=== PATIENT | female | born 1945 | race African-American/Black ===

== ENCOUNTER 2021-07-06 20:08 | Inpatient (IN) | payer OTHER ==
[2021-07-06] MEDS ORDERED: Benzonatate 100 MG CAP PO PRN (20:38)
[2021-07-06] MEDS ORDERED: Dextrose 50% Abboject 50 ML SYRINGE SLOW IVP PRN (20:57)
[2021-07-06] MEDS ORDERED: Acetaminophen 325 MG TAB PO PRN (20:57)
[2021-07-06 21:46] VITALS: BMI 23.6
[2021-07-06] MEDS: HumaLOG 300 UNITS/3 ML VIAL SC PRN (22:33)
[2021-07-06] MEDS: Lantus 1000 UNITS/10 ML VIAL SC SCH (22:34)
[2021-07-06] MEDS: Rifaximin 550 MG TAB PO SCH (22:35)
[2021-07-06] MEDS: Simvastatin 10 MG TAB PO SCH (22:35)
[2021-07-06] MEDS: Carvedilol 3.125 MG TAB PO SCH (22:35)
[2021-07-07] MEDS ORDERED: Ampicillin 2 GM VIAL IVPB SCH (05:00)
[2021-07-07] MEDS: HumaLOG 300 UNITS/3 ML VIAL SC PRN (06:01)
[2021-07-07] MEDS: Levothyroxine Sodium 75 MCG TAB PO SCH (06:03)
[2021-07-07] MEDS: Ampicillin 2 GM in Sodium Chloride 0.9% 100 ML IVPB SCH ×2 (06:03→17:01)
[2021-07-07 07:24] LABS: AST (SGOT) 26 U/L (5-34); Alkaline Phosphatase 144 U/L (40-110); Anion Gap 20 mmol/L (10-20); BUN (Urea Nitrogen) 25 mg/dL (9.8-20.1); Bilirubin, Total 3.3 mg/dL (0.2-1.2); Calc. Creatinine Clearance 7 mL/min (70-130); Calcium 8.4 mg/dL (7.8-10.44); Carbon Dioxide 21 mmol/L (23-31); Chloride 106 mmol/L (98-107); Globulin 3.6 g/dL (2.4-3.5); Potassium 3.5 mmol/L (3.5-5.1); Protein, Total 5.6 g/dL (5.8-8.1); Sodium 143 mmol/L (136-145)
[2021-07-07 07:39] LABS: #Eosinphils 0.1 thou/uL (0.0-0.7); #Lymphocytes 0.3 thou/uL (1.20-3.40); #Monocytes 0.5 thou/uL (0.11-0.59); %Eosinophils 1.9 % (0.0-10.0); %Lymphocytes 8.9 % (21.0-51.0); %Monocytes 11.5 % (0.0-10.0); %Neutrophils 76.7 % (42.0-75.0); Hemoglobin 8.2 g/dL (12.0-16.0); Mean Corpuscular HGB CONC 31.7 g/dL (32.0-36.0); Mean Corpuscular Hemoglobin 29.2 pg (27.0-31.0); Mean Corpuscular Volume 91.8 fL (78.0-98.0); Mean Platelet Volume 10.1 fL (7.4-10.4); Platelet Count 52 thou/uL (130-400); RBC Distribution Width 18.6 % (11.5-14.5); Red Blood Cell (RBC) Count 2.82 mill/uL (4.20-5.40); White Blood Cell (WBC) Count 3.9 thou/uL (4.8-10.8)
[2021-07-07 07:41] LABS: ALT (SGPT) 26 U/L (8-55); Glucose 180 mg/dL (83-110)
[2021-07-07] MEDS: Spironolactone 25 MG TAB PO SCH (08:55)
[2021-07-07] MEDS: Amlodipine 5 MG TAB PO SCH (08:56)
[2021-07-07] MEDS: Rifaximin 550 MG TAB PO SCH ×2 (08:56→21:22)
[2021-07-07] MEDS: Carvedilol 3.125 MG TAB PO SCH ×2 (08:56→21:22)
[2021-07-07] MEDS: Midodrine HCl 5 MG TAB PO SCH (08:56)
[2021-07-07] MEDS: Furosemide 40 MG TAB PO SCH (08:56)
[2021-07-07] MEDS: Lantus 1000 UNITS/10 ML VIAL SC SCH ×2 (09:03→21:23)
[2021-07-07] MEDS: Simvastatin 10 MG TAB PO SCH (21:22)
[2021-07-08] MEDS: Ampicillin 2 GM in Sodium Chloride 0.9% 100 ML IVPB SCH ×2 (05:08→17:22)
[2021-07-08] MEDS: Levothyroxine Sodium 75 MCG TAB PO SCH (05:08)
[2021-07-08] MEDS: Spironolactone 25 MG TAB PO SCH (09:17)
[2021-07-08] MEDS: Midodrine HCl 5 MG TAB PO SCH (09:17)
[2021-07-08] MEDS: Rifaximin 550 MG TAB PO SCH ×2 (09:18→21:53)
[2021-07-08] MEDS: Carvedilol 3.125 MG TAB PO SCH ×2 (09:18→21:53)
[2021-07-08] MEDS: Lantus 1000 UNITS/10 ML VIAL SC SCH ×2 (09:19→21:53)
[2021-07-08] MEDS: Furosemide 40 MG TAB PO SCH (09:19)
[2021-07-08] MEDS: Amlodipine 5 MG TAB PO SCH (09:20)
[2021-07-08] MEDS: HumaLOG 300 UNITS/3 ML VIAL SC PRN ×2 (12:22→17:21)
[2021-07-08] MEDS: Simvastatin 10 MG TAB PO SCH (21:53)
[2021-07-09] MEDS ORDERED: Sodium Chloride 0.9% 10 ML ONE (04:23)
[2021-07-09] MEDS: Ampicillin 2 GM in Sodium Chloride 0.9% 100 ML IVPB SCH ×2 (04:25→17:07)
[2021-07-09] MEDS: Levothyroxine Sodium 75 MCG TAB PO SCH (04:25)
[2021-07-09] MEDS: Furosemide 40 MG TAB PO SCH (11:51)
[2021-07-09] MEDS: Spironolactone 25 MG TAB PO SCH (11:51)
[2021-07-09] MEDS: Amlodipine 5 MG TAB PO SCH (11:52)
[2021-07-09] MEDS: Carvedilol 3.125 MG TAB PO SCH ×2 (11:53→21:04)
[2021-07-09] MEDS: Lantus 1000 UNITS/10 ML VIAL SC SCH ×2 (11:53→21:04)
[2021-07-09] MEDS: Rifaximin 550 MG TAB PO SCH ×2 (11:53→21:04)
[2021-07-09] MEDS: HumaLOG 300 UNITS/3 ML VIAL SC PRN ×2 (17:22→21:04)
[2021-07-09] MEDS: Simvastatin 10 MG TAB PO SCH (21:04)
[2021-07-10] MEDS ORDERED: Sodium Chloride 0.9% 10 ML ONE (05:26)
[2021-07-10] MEDS: Ampicillin 2 GM in Sodium Chloride 0.9% 100 ML IVPB SCH ×2 (05:47→17:15)
[2021-07-10] MEDS: Levothyroxine Sodium 75 MCG TAB PO SCH (05:47)
[2021-07-10] MEDS: Spironolactone 25 MG TAB PO SCH (09:45)
[2021-07-10] MEDS: Carvedilol 3.125 MG TAB PO SCH ×2 (09:46→20:42)
[2021-07-10] MEDS: Amlodipine 5 MG TAB PO SCH (09:46)
[2021-07-10] MEDS: Lantus 1000 UNITS/10 ML VIAL SC SCH ×2 (09:47→20:42)
[2021-07-10] MEDS: Furosemide 40 MG TAB PO SCH (09:47)
[2021-07-10] MEDS: Rifaximin 550 MG TAB PO SCH ×2 (09:47→20:41)
[2021-07-10] MEDS: HumaLOG 300 UNITS/3 ML VIAL SC PRN ×2 (12:15→17:16)
[2021-07-10 16:33] LABS: SARS-CoV-2 PCR by NAA Not Detected (NotDetected)
[2021-07-10] MEDS: Simvastatin 10 MG TAB PO SCH (20:42)
[2021-07-11] MEDS: Levothyroxine Sodium 75 MCG TAB PO SCH (06:04)
[2021-07-11] MEDS: Ampicillin 2 GM in Sodium Chloride 0.9% 100 ML IVPB SCH ×2 (06:04→17:59)
[2021-07-11 06:23] LABS: Anion Gap 17 mmol/L (10-20); BUN (Urea Nitrogen) 18 mg/dL (9.8-20.1); Calc. Creatinine Clearance 9 mL/min (70-130); Calcium 8.5 mg/dL (7.8-10.44); Carbon Dioxide 21 mmol/L (23-31); Chloride 109 mmol/L (98-107); Glucose 89 mg/dL (83-110); Potassium 3.9 mmol/L (3.5-5.1); Sodium 143 mmol/L (136-145)
[2021-07-11 06:41] LABS: #Basophils 0.1 thou/uL (0.0-0.2); #Eosinphils 0.1 thou/uL (0.0-0.7); #Lymphocytes 0.4 thou/uL (1.20-3.40); #Monocytes 0.4 thou/uL (0.11-0.59); #Neutrophils 3.5 thou/uL (1.40-6.50); %Basophils 1.2 % (0.0-1.0); %Lymphocytes 9.1 % (21.0-51.0); %Monocytes 9.5 % (0.0-10.0); %Neutrophils 78.2 % (42.0-75.0); Hemoglobin 8.1 g/dL (12.0-16.0); Mean Corpuscular HGB CONC 30.5 g/dL (32.0-36.0); Mean Corpuscular Hemoglobin 28.5 pg (27.0-31.0); Mean Corpuscular Volume 93.3 fL (78.0-98.0); Mean Platelet Volume 10.3 fL (7.4-10.4); Platelet Count 65 thou/uL (130-400); RBC Distribution Width 19.6 % (11.5-14.5); Red Blood Cell (RBC) Count 2.83 mill/uL (4.20-5.40); White Blood Cell (WBC) Count 4.4 thou/uL (4.8-10.8)
[2021-07-11] MEDS: Rifaximin 550 MG TAB PO SCH ×2 (08:24→20:19)
[2021-07-11] MEDS: Midodrine HCl 5 MG TAB PO SCH (08:24)
[2021-07-11] MEDS: Furosemide 40 MG TAB PO SCH (08:24)
[2021-07-11] MEDS: Spironolactone 25 MG TAB PO SCH (08:25)
[2021-07-11] MEDS: Lantus 1000 UNITS/10 ML VIAL SC SCH ×2 (08:26→20:35)
[2021-07-11] MEDS: Carvedilol 3.125 MG TAB PO SCH ×2 (08:26→20:19)
[2021-07-11] MEDS: Amlodipine 5 MG TAB PO SCH (08:30)
[2021-07-11] MEDS: HumaLOG 300 UNITS/3 ML VIAL SC PRN (18:01)
[2021-07-11] MEDS: Simvastatin 10 MG TAB PO SCH (20:17)
[2021-07-12] MEDS: Ampicillin 2 GM in Sodium Chloride 0.9% 100 ML IVPB SCH (05:13)
[2021-07-12] MEDS: Levothyroxine Sodium 75 MCG TAB PO SCH (05:13)
[2021-07-12] MEDS ORDERED: EPOETIN ALFA-EPBX (ESRD) 10,000 UNIT/ML VIAL SC SCH (09:00)
[2021-07-12] MEDS: Ondansetron ODT 4 MG TAB SL PRN ×2 (12:57→17:57)
[2021-07-12] MEDS ORDERED: Midodrine HCl 5 MG TAB PO SCH (13:00)
[2021-07-12] MEDS: Spironolactone 25 MG TAB PO SCH (13:01)
[2021-07-12] MEDS: Furosemide 40 MG TAB PO SCH (13:02)
[2021-07-12] MEDS: Rifaximin 550 MG TAB PO SCH ×2 (13:02→21:58)
[2021-07-12] MEDS: Amlodipine 5 MG TAB PO SCH (13:02)
[2021-07-12] MEDS: Carvedilol 3.125 MG TAB PO SCH ×2 (13:02→21:58)
[2021-07-12] MEDS: Lantus 1000 UNITS/10 ML VIAL SC SCH ×2 (13:04→22:04)
[2021-07-12] MEDS ORDERED: traMADol HCl 50 MG TAB PO PRN (18:26)
[2021-07-12 19:55] VITALS: TEMP 98.3
[2021-07-12] MEDS ORDERED: Simethicone Chewable 80 MG TAB PO PRN (20:14)
[2021-07-12] MEDS ORDERED: Promethazine HCl 25 MG/ML VIAL IM PRN (21:45)
[2021-07-12] MEDS: Simvastatin 10 MG TAB PO SCH (21:58)
[2021-07-13 00:01] LABS: ALT (SGPT) 92 U/L (8-55); AST (SGOT) 159 U/L (5-34); Albumin 1.9 g/dL (3.4-4.8); Alkaline Phosphatase 166 U/L (40-110); Anion Gap 18 mmol/L (10-20); BUN (Urea Nitrogen) 17 mg/dL (9.8-20.1); Bilirubin, Total 3.4 mg/dL (0.2-1.2); Calc. Creatinine Clearance 14 mL/min (70-130); Calcium 8.1 mg/dL (7.8-10.44); Carbon Dioxide 22 mmol/L (23-31); Chloride 105 mmol/L (98-107); Globulin 3.9 g/dL (2.4-3.5); Glucose 102 mg/dL (83-110); Potassium 4.3 mmol/L (3.5-5.1); Protein, Total 5.8 g/dL (5.8-8.1); Sodium 141 mmol/L (136-145)
[2021-07-13 00:09] LABS: #Basophils 0.1 thou/uL (0.0-0.2); #Eosinphils 0.1 thou/uL (0.0-0.7); #Lymphocytes 0.4 thou/uL (1.20-3.40); #Monocytes 0.6 thou/uL (0.11-0.59); #Neutrophils 4.4 thou/uL (1.40-6.50); %Basophils 0.9 % (0.0-1.0); %Monocytes 10.2 % (0.0-10.0); %Neutrophils 80.9 % (42.0-75.0); Anisocytosis SLIGHT = 6-15 cells (100X) (0-5/hpf); Hypochromia SLIGHT = 6-15 cells (100X) (0-5/hpf); MDiff Complete? YES; Mean Corpuscular HGB CONC 30.7 g/dL (32.0-36.0); Mean Corpuscular Hemoglobin 29.1 pg (27.0-31.0); Mean Corpuscular Volume 94.6 fL (78.0-98.0); RBC Distribution Width 20.5 % (11.5-14.5); Red Blood Cell (RBC) Count 2.41 mill/uL (4.20-5.40); Target Cells SLIGHT = 2-5 cells (100X) (0-1/hpf); White Blood Cell (WBC) Count 5.4 thou/uL (4.8-10.8)
[2021-07-13 01:48] LABS: #Basophils 0.1 thou/uL (0.0-0.2); #Eosinphils 0.1 thou/uL (0.0-0.7); #Lymphocytes 0.5 thou/uL (1.20-3.40); #Monocytes 0.6 thou/uL (0.11-0.59); #Neutrophils 4.1 thou/uL (1.40-6.50); %Basophils 1.3 % (0.0-1.0); %Eosinophils 1.1 % (0.0-10.0); %Lymphocytes 9.4 % (21.0-51.0); %Monocytes 12.1 % (0.0-10.0); %Neutrophils 76.1 % (42.0-75.0); Hemoglobin 7.6 g/dL (12.0-16.0); Mean Corpuscular HGB CONC 30.4 g/dL (32.0-36.0); Mean Corpuscular Hemoglobin 28.4 pg (27.0-31.0); Mean Corpuscular Volume 93.3 fL (78.0-98.0); Mean Platelet Volume 8.6 fL (7.4-10.4); Platelet Count 68 thou/uL (130-400); RBC Distribution Width 19.2 % (11.5-14.5); Red Blood Cell (RBC) Count 2.68 mill/uL (4.20-5.40); White Blood Cell (WBC) Count 5.3 thou/uL (4.8-10.8)
[2021-07-13] MEDS: Levothyroxine Sodium 75 MCG TAB PO SCH (06:01)
[2021-07-13 07:35] VITALS: BP 131/67
[2021-07-13] MEDS: Amlodipine 5 MG TAB PO SCH (09:13)
[2021-07-13] MEDS: Spironolactone 25 MG TAB PO SCH (09:13)
[2021-07-13] MEDS: Carvedilol 3.125 MG TAB PO SCH (09:13)
[2021-07-13] MEDS: Lantus 1000 UNITS/10 ML VIAL SC SCH (09:14)
[2021-07-13] MEDS: Furosemide 40 MG TAB PO SCH (09:14)
[2021-07-13] MEDS: Rifaximin 550 MG TAB PO SCH (09:14)
[2021-07-13] MEDS: HumaLOG 300 UNITS/3 ML VIAL SC PRN (12:13)
[2021-07-13 15:38] LABS: #Basophils 0.1 thou/uL (0.0-0.2); #Lymphocytes 0.5 thou/uL (1.20-3.40); #Monocytes 1.2 thou/uL (0.11-0.59); #Neutrophils 6.1 thou/uL (1.40-6.50); %Basophils 1.1 % (0.0-1.0); %Eosinophils 0.4 % (0.0-10.0); %Lymphocytes 6.2 % (21.0-51.0); %Monocytes 15.3 % (0.0-10.0); Hemoglobin 7.3 g/dL (12.0-16.0); Mean Corpuscular HGB CONC 30.5 g/dL (32.0-36.0); Mean Corpuscular Hemoglobin 29.2 pg (27.0-31.0); Mean Corpuscular Volume 95.6 fL (78.0-98.0); Mean Platelet Volume 9.6 fL (7.4-10.4); Platelet Count 66 thou/uL (130-400); RBC Distribution Width 19.8 % (11.5-14.5); White Blood Cell (WBC) Count 7.9 thou/uL (4.8-10.8)
[2021-07-13 15:39] LABS: ALT (SGPT) 97 U/L (8-55); AST (SGOT) 86 U/L (5-34); Albumin 1.9 g/dL (3.4-4.8); Alkaline Phosphatase 143 U/L (40-110); Anion Gap 20 mmol/L (10-20); BUN (Urea Nitrogen) 22 mg/dL (9.8-20.1); Bilirubin, Total 3.6 mg/dL (0.2-1.2); Calc. Creatinine Clearance 11 mL/min (70-130); Calcium 8.6 mg/dL (7.8-10.44); Carbon Dioxide 21 mmol/L (23-31); Chloride 105 mmol/L (98-107); Globulin 3.7 g/dL (2.4-3.5); Glucose 153 mg/dL (83-110); Potassium 4.5 mmol/L (3.5-5.1); Protein, Total 5.6 g/dL (5.8-8.1); Sodium 141 mmol/L (136-145)
[2021-07-14] MEDS ORDERED: Midodrine HCl 5 MG TAB PO SCH (09:00)
== END 2021-07-13 18:25 | disposition home health service (06) | DRG 947 ==
LOC: NAV ACUTE 21:28
PROVIDERS: ADMIT Family Medicine; ATTEND Family Medicine
DX: R53.81 Other malaise (principal); N18.6 End stage renal disease; I12.0 Hypertensive chronic kidney disease with stage 5 chronic kidney disease or end stage renal disease; R78.81 Bacteremia; K76.6 Portal hypertension; R53.1 Weakness; Z20.822 Contact with and (suspected) exposure to COVID-19; D63.1 Anemia in chronic kidney disease; E11.22 Type 2 diabetes mellitus with diabetic chronic kidney disease; E03.9 Hypothyroidism, unspecified; K70.31 Alcoholic cirrhosis of liver with ascites; E78.5 Hyperlipidemia, unspecified; K72.90 Hepatic failure, unspecified without coma; D69.6 Thrombocytopenia, unspecified; B95.2 Enterococcus as the cause of diseases classified elsewhere; E86.0 Dehydration; Z85.05 Personal history of malignant neoplasm of liver; Z90.710 Acquired absence of both cervix and uterus; Z99.2 Dependence on renal dialysis; Z79.899 Other long term (current) drug therapy; Z79.4 Long term (current) use of insulin; Z79.890 Hormone replacement therapy
CPT/HCPCS: 36415; 36416; 80048; 80053; 82140; 85025; 86850; 86900; 86901; 94640; J0290; J1815; J2550; J3490; J7620; Q0162; Q5105; U0003; U0005